=== PATIENT | female | born 1950 | race Caucasian/White ===

== ENCOUNTER 2019-06-25 09:18 | Day surgery (SDC) | payer OTHER, MEDICARE ==
--- NOTE | 2019-05-29 10:04 | PREOP ---
DATE OF ADMISSION: 06/25/2019. HISTORY: A 68-year-old woman admitted for laparoscopic removal of her gallbladder as management of symptomatic cholelithiasis. Patient was well, up until this year, when she initially presented with severe epigastric pain radiating across her upper abdomen and lasting up to almost 1 hour in time. That followed consumption of pizza. A second attack followed a meal consisting of eggs and again her symptoms were reproduced. Ultrasound of the abdomen completed on December 28, 2016, demonstrated evidence of cholelithiasis. No gallbladder wall thickening. Biliary and ductal structures of normal caliber. On close questioning, patient states her mother also had biliary disease and required cholecystectomy. She has had no unintentional weight loss. There has been no history of jaundice. PAST MEDICAL HISTORY: Is significant for peptic ulcer disease remotely. Last upper endoscopy 10 years ago. Patient states this discomfort is very different from her ulcer disease in the past. Patient suffers with mitral valve prolapse, as well as arthritis, eye disease, and a severe anxiety-depressive disorder. Patient also has a history of hepatitis C, migraines, and osteoporosis. Her hepatitis C has been treated with interferon in the past. PAST SURGICAL HISTORY: Significant for spinal fusions x2. She had blood transfusions during that procedure and that is felt to be the likely source of hepatitis C. Patient has had excisional breast biopsies in the past, as well. ALLERGIES: CONTRAST DYE/anaphylaxis. CURRENT MEDICATIONS: Inderal, lutein, Valium 5 mg p.r.n., medical marijuana ( spray) for migraines. SOCIAL HISTORY: Negative tobacco. Negative alcohol. FAMILY HISTORY: Father , history of Parkinson disease. Mother , history of lung cancer. Siblings: One with melanoma. REVIEW OF SYSTEMS: Otherwise nil. PHYSICAL EXAMINATION: Abdomen: Soft, nontender with no palpable findings. Upper midline diastasis recti noted. No herniation. IMPRESSION: Chronic cholecystitis/cholelithiasis. PLAN: Patient to undergo laparoscopic cholecystectomy. Patient very anxious. Patient to speak to Dr. Hooper about sedation prior to surgery, as she is quite anxious even here in the office and I suspect will be more so at the time of her arrival at the hospital. Indications, alternatives, possible complications of the attendant procedure reviewed. Consent obtained. Patient to be seen preoperatively by Dr. Raphael Hooper. Please refer to his notes for those medical details. JESS URRUTIA M.D. EMMETT/[id number] cc: Wanda Porras
[2019-06-12 16:35] VITALS: BMI 22.3
[~2019-06-25 09:18] MED LIST: ACETAMINOPHEN 325 MG TABLET (FP) PO PRN; DEXAMETHASONE SOD PHOSPHATE 4 MG/1 ML VIAL ONE; EPHEDRINE SULFATE/0.9% NACL/PF 50 MG/10 ML SYRINGE NR ONE; GLYCOPYRROLATE 0.2 MG/1 ML VIAL ONE; KETOROLAC TROMETHAMINE 30 MG/1 ML VIAL ONE; LIDOCAINE HCL/PF 2% SDV 5ML VIAL ONE; MIDAZOLAM HCL 2 MG/2 ML SINGLE DOSE VIAL ONE; NEOSTIGMINE METHYLSULFATE 0.5 MG/ML - 10 ML MDV ONE; ONDANSETRON 4 MG/2 ML VIAL ONE; PROPOFOL 20 ML ONE; ROCURONIUM BROMIDE 50 MG/5 ML SYRINGE ONE; SODIUM CHLORIDE 0.9% P/F 10 ML VIAL IJ ONE; SUCCINYLCHOLINE CHLORIDE 200 MG/10 ML SYRINGE ONE; ceFAZolin SODIUM 1 GM VIAL ONE; diazePAM 5 MG TABLET PO PRN; morphine SULFATE 4 MG/ML VIAL IVPB PRN; oxyCODONE HCL 5 MG TABLET PO PRN
[2019-06-25] MEDS ORDERED: ONDANSETRON 4 MG/2 ML VIAL ONE (10:25)
[2019-06-25] MEDS: ONDANSETRON 4 MG/2 ML VIAL IVPUSH PRN ×2 (10:30→11:59)
--- NOTE | 2019-06-25 11:07 | OP ---
DATE OF OPERATION: 06/25/2019 PREOPERATIVE DIAGNOSIS: Chronic cholecystitis/cholelithiasis. POSTOPERATIVE DIAGNOSIS: Chronic cholecystitis/cholelithiasis. PROCEDURE: Laparoscopic cholecystectomy. OPERATING SURGEON: Felipe Feliz MD ASPHALT LAYER: Henok Garcia DO ANESTHESIA: Ten Martin MD (general) HISTORY: This is a 68-year-old woman who presents for laparoscopic removal of her gallbladder as management of symptomatic cholelithiasis. Indications, alternatives and possible complications were reviewed. Consent obtained. PROCEDURE: With the patient in the supine position, and after general anesthesia, the abdomen was prepped and draped in usual sterile fashion using chlorhexidine. A small infraumbilical incision was made through which a Veress needle was placed into the abdominal cavity. The abdominal cavity was insufflated to an adequate pressure and volume using CO2 gas. The Veress needle was removed. An 11-mm trocar port was placed through the infraumbilical wound. The camera lens passed through this port and the intraabdominal cavity visualized. Under direct vision two 5-mm right anterolateral ports were placed through which clamps were passed to maintain traction on the gallbladder and aid in the dissection. An 11-mm port was placed in the epigastrium through which the operating instruments were passed. Limited exploration revealed several adhesions about the gallbladder. No other significant findings. These adhesions were taken down under direct vision exposing the entire gallbladder and hepatoduodenal ligament. The peritoneum and the hepatoduodenal ligament were incised. The cystic duct was identified. Cystic duct/bile duct junction was noted. The cystic duct was clipped proximal and distally and divided. The adjacent artery was managed similarly. Gallbladder was then removed from the gallbladder bed lysing its peritoneal attachment using the electrocautery. It was ultimately placed in a retrieval bag. The right upper quadrant was irrigated and the irrigant retrieved. Adequate hemostasis ensured at the level of the liver bed and port sites as the ports were removed under direct vision. The gallbladder was then delivered through the umbilical port site in its retrieval bag. The pneumoperitoneum was allowed to escape. The fascia at the umbilicus was approximated using interrupted 0 Vicryl sutures. All skin was closed using subcuticular 4-0 Biosyn sutures. COUNTS: Needle, sponge, instrument count correct. ESTIMATED BLOOD LOSS: Minimal. SPECIMEN: Gallbladder. DRAINS: None. Patient tolerated the procedure and the procedure was terminated. Wanda MIRANDA/[id number] MTDD
[2019-06-25] MEDS ORDERED: LACTATED RINGERS SOLUTION 1,000 ML IV SCH (11:30)
[2019-06-25] MEDS: D5-1/2NS+20 MEQ KCL - 20 MEQ/1,000 ML INFUS.BAG IV SCH (11:37)
[2019-06-25] MEDS: PANTOPRAZOLE SODIUM 40 MG VIAL IVPUSH SCH (11:37)
[2019-06-25] MEDS ORDERED: PT OWN MED DRAWER 7, Y5N ONE ×2 (19:54→19:55)
[2019-06-26] MEDS: D5-1/2NS+20 MEQ KCL - 20 MEQ/1,000 ML INFUS.BAG IV SCH (09:47)
[2019-06-26] MEDS: PANTOPRAZOLE SODIUM 40 MG VIAL IVPUSH SCH (09:48)
[2019-06-26] MEDS ORDERED: ENOXAPARIN NA (PORCINE) 40 MG/0.4 ML DISP.SYRIN SQ SCH (10:00)
[2019-06-26 10:20] VITALS: BP 112/49; PULSE 57; TEMP 97.8
== END 2019-06-26 10:20 | disposition home or self-care (01) ==
LOC: FASUSAT 09:18 → FM/S 09:32 → FASUSAT 06-26 10:20
PROVIDERS: ATTEND Surgery
PROC: 0FT44ZZ Resection of Gallbladder, Percutaneous Endoscopic Approach (ICD-10-PCS; principal; 2019-06-25 08:00)
DX: K80.44 Calculus of bile duct with chronic cholecystitis without obstruction (principal); H57.89 Other specified disorders of eye and adnexa; M19.90 Unspecified osteoarthritis, unspecified site; F41.8 Other specified anxiety disorders; M81.0 Age-related osteoporosis without current pathological fracture; Z87.11 Personal history of peptic ulcer disease; Z86.19 Personal history of other infectious and parasitic diseases
CPT/HCPCS: 94760

== ENCOUNTER 2021-03-16 05:21 | Day surgery (SDC) | payer OTHER, MEDICARE ==
[2021-03-15 15:44] VITALS: BMI 24.1
[2021-03-16 12:33] VITALS: TEMP 97.6
[2021-03-16 12:49] VITALS: PULSE 60
[2021-03-16 13:50] VITALS: BP 113/60
== END 2021-03-16 13:51 | disposition home or self-care (01) ==
LOC: JASU-ENDO 05:21
PROVIDERS: ATTEND Internal Medicine Gastroenterology
PROC: 0DB68ZX Excision of Stomach, Via Natural or Artificial Opening Endoscopic, Diagnostic (ICD-10-PCS; 2021-03-16)
PROC: 0DB98ZX Excision of Duodenum, Via Natural or Artificial Opening Endoscopic, Diagnostic (ICD-10-PCS; principal; 2021-03-16 11:00)
DX: K29.50 Unspecified chronic gastritis without bleeding (principal); K44.9 Diaphragmatic hernia without obstruction or gangrene; K21.9 Gastro-esophageal reflux disease without esophagitis

== ENCOUNTER 2023-05-31 05:10 | Day surgery (SDC) | payer OTHER, MEDICARE ==
[2023-05-29 15:21] VITALS: BMI 23.8
[2023-05-31 10:24] VITALS: TEMP 97
[2023-05-31 11:02] VITALS: BP 115/48; PULSE 64; RESP 15
== END 2023-05-31 11:30 | disposition home or self-care (01) ==
LOC: JASU-ENDO 05:10
PROVIDERS: ATTEND Internal Medicine Gastroenterology
PROC: 0DBN8ZX Excision of Sigmoid Colon, Via Natural or Artificial Opening Endoscopic, Diagnostic (ICD-10-PCS; principal; 2023-05-31 10:30)
DX: Z12.11 Encounter for screening for malignant neoplasm of colon (principal); K63.5 Polyp of colon; K55.20 Angiodysplasia of colon without hemorrhage; K64.8 Other hemorrhoids; K57.30 Diverticulosis of large intestine without perforation or abscess without bleeding
CPT/HCPCS: 88305-TC